=== PATIENT | male | born 1965 | race Caucasian/White ===

== ENCOUNTER 2018-01-27 08:25 | Inpatient (IN) | payer MEDICAID ==
[~2018-01-27] VITALS: Ht 170.2 cm; Wt 84.0 kg
[2018-01-27 08:29] VITALS: Ht 170.2 cm; Wt 84.0 kg
[2018-01-27 09:19] LABS: BASOPHIL % 0.9 % (0-2); PLATELET COUNT 232 x10^3mcL (130-400); RED CELL DISTRIBUTION WIDTH 13.1 % (11.5-14.5)
[2018-01-27 09:33] LABS: CALCIUM 9.1 mg/dL (8.5-10.1); CARBON DIOXIDE 25.4 mmol/L (21-32); CHLORIDE SERUM 108 mmol/L (98-107); CREATININE SERUM 0.7 mg/dL (0.7-1.3); GFR1 > 60 mL/min; GLUCOSE SERUM 123 mg/dL (74-106); SODIUM SERUM 146 mmol/L (136-145)
[2018-01-27 09:36] LABS: ALKALINE PHOSPHATASE 84 U/L (46-116); ALT/SGPT 34 U/L (16-63); AST/SGOT 20 U/L (15-37); BILIRUBIN TOTAL 0.57 mg/dL (0.20-1.00); TOTAL PROTEIN, SERUM 7.6 g/dL (6.4-8.2)
[2018-01-27 13:14] VITALS: BP 163/101
[2018-01-27 14:47] LABS: T3 TOTAL 1.38 ng/mL
[2018-01-27 15:11] LABS: PHOSPHOROUS 3.2 mg/dL (2.5-4.9)
[2018-01-27 15:12] LABS: CHOLESTEROL/HDL RATIO 4.4
[2018-01-27 15:44] LABS: FREE T4 0.75 ng/dL (0.76-1.46); FREE THYROXINE INDEX 2.2 ug/dL (1.4-4.5); T4(THYROXINE) 6.6 ug/dL (4.7-13.3)
[2018-01-27 16:57] LABS: microscopic required? NO
[2018-01-27 17:06] LABS: urine erythrocyte NEGATIVE (NEGATIVE)
[2018-01-27 17:17] VITALS: BP 162/96
[2018-01-27 17:20] LABS: AMPHETAMINE QUAL UR NONE DETECTED (NEG <=1000)
[2018-01-27 18:27] LABS: BASOPHIL % 0.7 % (0-2); PLATELET COUNT 217 x10^3mcL (130-400); RED CELL DISTRIBUTION WIDTH 13.1 % (11.5-14.5)
[2018-01-27 20:29] VITALS: BP 145/89
[2018-01-28 05:34] VITALS: BP 135/84
[2018-01-28 06:19] LABS: BASOPHIL % 0.5 % (0-2); PLATELET COUNT 214 x10^3mcL (130-400); RED CELL DISTRIBUTION WIDTH 13.1 % (11.5-14.5)
[2018-01-28 06:29] LABS: CALCIUM 8.5 mg/dL (8.5-10.1); CARBON DIOXIDE 25.5 mmol/L (21-32); CHLORIDE SERUM 104 mmol/L (98-107); CREATININE SERUM 0.7 mg/dL (0.7-1.3); GFR1 > 60 mL/min; GLUCOSE SERUM 117 mg/dL (74-106); POTASSIUM SERUM 4.1 mmol/L (3.5-5.1); SODIUM SERUM 138 mmol/L (136-145)
[2018-01-28 08:30] VITALS: BP 135/92
[2018-01-28] MEDS ORDERED: LIPI10 PO (09:03)
[2018-01-28 09:40] VITALS: BP 122/84
[2018-01-28 10:14] VITALS: BP 122/84
== END 2018-01-28 10:43 | disposition home or self-care (01) | DRG 253 ==
LOC: ED 08:25 → DU 10:55
PROVIDERS: Emergency Medicine; Family Medicine; Internal Medicine Gastroenterology
PROC: 0DJD8ZZ Inspection of Lower Intestinal Tract, Via Natural or Artificial Opening Endoscopic (ICD-10-PCS; principal; 2018-01-28 08:30)
DX: K92.2 Gastrointestinal hemorrhage, unspecified (principal); E87.0 Hyperosmolality and hypernatremia; K64.8 Other hemorrhoids; E78.5 Hyperlipidemia, unspecified; F17.210 Nicotine dependence, cigarettes, uncomplicated; F10.10 Alcohol abuse, uncomplicated; Y90.9 Presence of alcohol in blood, level not specified
CPT/HCPCS: 45378; 83880; 84439; G0480; J1200; J1610; J2250; J2310; J3010; J3490; J7030; Q0092

== ENCOUNTER 2018-02-12 14:10 | Emergency (ER) | payer MEDICAID ==
[~2018-02-12] VITALS: Ht 162.6 cm; Wt 85.7 kg
[~2018-02-12 14:10] MED LIST: LIPI10 PO
[2018-02-12 14:15] VITALS: Ht 162.6 cm; Wt 85.7 kg
[2018-02-12 15:59] LABS: BASOPHIL % 0.9 % (0-2); PLATELET COUNT 200 x10^3mcL (130-400); RED CELL DISTRIBUTION WIDTH 13.3 % (11.5-14.5)
[2018-02-12 17:29] VITALS: BP 120/63
== END 2018-02-12 17:29 | disposition home or self-care (01) ==
LOC: ED 14:10
PROVIDERS: Emergency Medicine Emergency Medical Services
DX: K57.33 Diverticulitis of large intestine without perforation or abscess with bleeding (principal)
CPT/HCPCS: 36415